=== PATIENT | female | born 2000 | race Caucasian/White ===

== ENCOUNTER 2022-04-30 12:49 | Emergency (ER) | payer MEDICAID ==
[~2022-04-30] VITALS: Ht 162.6 cm; Wt 46.4 kg
[2022-04-30 13:00] VITALS: TEMP 98.3
[2022-04-30 13:43] LABS: COLLECTION METHOD CLEAN CATCH
[2022-04-30 13:53] LABS: URINE APPEARANCE Hazy (CLEAR/HAZY); URINE COLOR Yellow (YELLOW)
[2022-04-30 13:54] LABS: URINE BLOOD TRACE-INTACT (NEGATIVE); URINE GLUCOSE Negative (NEGATIVE); URINE KETONE Negative (NEGATIVE); URINE NITRATE Negative (NEGATIVE); URINE PROTEIN(semi-quant) Negative (NEGATIVE)
[2022-04-30 13:55] LABS: MUCOUS Present (NOT PRESENT); URINE BACTERIA Rare /hpf (NONE SEEN)
[2022-04-30 14:16] LABS: ALBUMIN 3.3 gm/dL (3.5-5.0); BASO # 0.1 K/mm3 (0.0-0.2); BASO % 0.5 % (0.0-2.0); BILIRUBIN,TOTAL 0.3 mg/dL (0.2-1.2); CREATININE, serum 0.6 mg/dL (0.57-1.11); EOS % 0.4 % (0.0-4.0); GRAN # 7.2 K/mm3 (1.4-6.5); GRAN % 72.8 % (42.2-75.2); LYMPH # 1.9 K/mm3 (1.2-3.4); MEAN CELL VOLUME 61 fl (80.0-95.0); MEAN CORPUSCULAR HGB CONC 29 g/dl (33.0-37.0); MONO # 0.7 K/mm3 (0.1-0.6); MONO % 6.9 % (1.7-9.3); PLATELET COUNT 227 K/mm3 (130-400); POTASSIUM 3.7 mmol/L (3.5-4.5); RED BLOOD COUNT 4.44 M/mm3 (4.10-5.30); REDCELL DISTRIBUTION WIDTH-CV 21.9 % (11.5-14.5); TOTAL PROTEIN 7.4 gm/dL (6.2-8.1)
[2022-04-30 14:59] LABS: HEMATOCRIT 26.9 % (35.0-45.0); HEMOGLOBIN 7.9 g/dl (12.0-15.0); MEAN CORPUSCULAR HEMOGLOBIN 18 pg (26-32)
[2022-04-30] MEDS ORDERED: MACROBID 1100 MG/CAP PO (15:06)
[2022-04-30 15:30] VITALS: BP 118/71; PULSE 90
== END 2022-04-30 15:40 | disposition home or self-care (01) ==
LOC: COL.ER 12:49
PROVIDERS: Emergency Medicine
DX: O23.42 Unspecified infection of urinary tract in pregnancy, second trimester (principal); O99.012 Anemia complicating pregnancy, second trimester; N39.0 Urinary tract infection, site not specified; D50.9 Iron deficiency anemia, unspecified; Z28.310 Unvaccinated for COVID-19; Z3A.16 16 weeks gestation of pregnancy

== ENCOUNTER → 2022-05-02 | Outpatient (CLI) | payer SELFPAY ==
[~2022-05-02] MED LIST: MACROBID 1100 MG/CAP PO
== END ==
LOC: COL.RAD 06:19
DX: O26.892 Other specified pregnancy related conditions, second trimester (principal); O34.82 Maternal care for other abnormalities of pelvic organs, second trimester; N83.202 Unspecified ovarian cyst, left side; Z3A.16 16 weeks gestation of pregnancy

== ENCOUNTER 2022-07-12 14:48 | Outpatient (RCR) | payer MEDICAID ==
[~2022-07-12] VITALS: Ht 162.6 cm; Wt 54.8 kg
[2022-07-12] MEDS ORDERED: FLAGYL500 MG PO (15:45)
[2022-07-12] MEDS ORDERED: PRENATAL TABLET PO (15:46)
[2022-07-12 15:55] VITALS: BP 97/64; PULSE 94; TEMP 98.7
--- NOTE | 2022-07-12 16:15 | NUR ---
Iron infusion not given, as staff enter room to start IV pt reports she has had hx of reaction to an iron infusion, but she is unable to provide name of iron infusion she was given. She is asked to contact infusion center in [place] to request name of med she reacted to, as well as name of med they switched to after reaction, which she was able to tolerate. She states reaction with initial infusion caused burning sensation in feet and swelling which lead to ED visit for allergic reaction. Pt exits dept at this time and will inform [facility] and Dr Prabhakar's office when she gets names of meds from [place].
--- NOTE | 2022-07-12 16:49 | NUR ---
Pt calls back at this time reporting she heard back from infusion center in [place]. She had allergic reaction to venofer. Infusion orders were changed to ferrlecit gluconate, which she tolerated without issue. Pt will relay this medication to Dr Prabhakar's office via portal. This nurse will also call to leave information in voicemail.
== END 2022-07-13 15:36 ==
LOC: EUO 14:48
DX: Z51.81 Encounter for therapeutic drug level monitoring (principal)

== ENCOUNTER 2022-08-11 13:00 | Outpatient (RCR) | payer MEDICAID ==
[2022-07-28 09:18] VITALS: BP 103/67; PULSE 92; TEMP 98.6
--- NOTE | 2022-07-28 10:47 | NUR ---
PT AMBULATED TO [facility] FOR AN IRON INFUSION. MEDS AND HX REVIEWED WITH PT. IV STARTED. IRON INFUSION GIVEN, PT STATED THAT THEY FELT GOOD AFTER THE INFUSION HAD FINSISHED. THIS WAS THE PTS FIRST IRON INFUSION WITH US, THEY WAITED 30 MINUTES POST INFUSION TO MAKE SURE THEY TOLERATED IT WELL. IV WAS THEN DC'D AND PT EXITED THE UNIT.
[2022-08-04 08:11] VITALS: BP 109/68; PULSE 65; TEMP 98.4
--- NOTE | 2022-08-04 09:16 | NUR ---
Pt discharged at approx 0915. pt toelrated iron infusion well and verbalized when next appointment would by. IV was removed upon discharge and pt tolerated po fluids throughout infusion. She was free from concerns and complaints at time of discharge.
[~2022-08-11] VITALS: Ht 162.6 cm; Wt 57.3 kg
[~2022-08-11 13:00] MED LIST changes: +FLAGYL500 MG PO; +PRENATAL TABLET PO
[2022-08-11 13:38] VITALS: BP 95/60; PULSE 77; TEMP 98.5
== END 2022-08-11 15:07 ==
LOC: EUO 13:00
DX: Z51.81 Encounter for therapeutic drug level monitoring (principal)
CPT/HCPCS: J2916

== ENCOUNTER 2022-12-29 09:28 | Emergency (ER) | payer MEDICAID ==
[~2022-12-29] VITALS: Ht 162.6 cm; Wt 50.0 kg
[~2022-12-29 09:28] MED LIST changes: +MOTRIN 800800 MG/TAB PO
[2022-12-29 09:32] VITALS: TEMP 98.4
[2022-12-29 10:02] VITALS: BP 105/63; PULSE 96
== END 2022-12-29 10:10 | disposition home or self-care (01) ==
LOC: COL.ER 09:28
DX: J02.9 Acute pharyngitis, unspecified (principal); R53.81 Other malaise; Z28.310 Unvaccinated for COVID-19

== ENCOUNTER 2023-03-21 21:39 | Emergency (ER) | payer MEDICAID ==
[~2023-03-21] VITALS: Ht 162.6 cm; Wt 48.6 kg
[2023-03-21 21:45] VITALS: TEMP 98.4
[2023-03-21 22:26] LABS: BASO % 0.2 % (0.0-2.0); EOS % 0.2 % (0.0-4.0); GRAN # 7.7 K/mm3 (1.4-6.5); GRAN % 89.7 % (42.2-75.2); LYMPH # 0.7 K/mm3 (1.2-3.4); LYMPH % 7.6 % (20.0-51.0); MEAN CELL VOLUME 62 fl (80.0-100.0); MEAN CORPUSCULAR HGB CONC 28 g/dl (33.0-37.0); MONO # 0.2 K/mm3 (0.1-0.6); MONO % 2.1 % (1.7-9.3); PLATELET COUNT 201 K/mm3 (130-400); RED BLOOD COUNT 4.28 M/mm3 (4.10-5.30); REDCELL DISTRIBUTION WIDTH-CV 23.5 % (11.5-14.5)
[2023-03-21 22:27] LABS: HEMATOCRIT 26.7 % (37.0-47.0); HEMOGLOBIN 7.5 g/dl (12.5-16.0); MEAN CORPUSCULAR HEMOGLOBIN 18 pg (27-31)
[2023-03-21 22:45] LABS: BILIRUBIN,TOTAL 0.5 mg/dL (0.2-1.2); CALCIUM 8.9 mg/dL (8.4-10.2); CREATININE, serum 0.71 mg/dL (0.57-1.11); POTASSIUM 3.5 mmol/L (3.5-4.5); TOTAL PROTEIN 7.5 gm/dL (6.2-8.1)
[2023-03-21 23:28] LABS: COLLECTION METHOD CLEAN CATCH
[2023-03-21 23:43] LABS: URINE APPEARANCE Clear (CLEAR/HAZY); URINE COLOR Yellow (YELLOW)
[2023-03-21 23:44] LABS: MUCOUS Present (NOT PRESENT); SQUAMOUS EPITHELIAL 0-2 /hpf (0-10); URINE BACTERIA Occasional /hpf (NONE SEEN); URINE BLOOD 3+ (NEGATIVE); URINE GLUCOSE Negative (NEGATIVE); URINE KETONE Negative (NEGATIVE); URINE NITRATE Negative (NEGATIVE); URINE PROTEIN(semi-quant) Negative (NEGATIVE); URINE UROBILINOGEN 0.2 E.U/dL (0.2-1.0)
[2023-03-21] MEDS ORDERED: ZOFRAN ODT4 MG PO (23:57)
[2023-03-21] MEDS ORDERED: MACROBID 1100 MG/CAP PO (23:57)
[2023-03-22] VITALS: BP 109/63; PULSE 98
== END 2023-03-22 00:13 | disposition home or self-care (01) ==
LOC: COL.ER 21:39
PROVIDERS: Emergency Medicine
DX: N39.0 Urinary tract infection, site not specified (principal); N93.9 Abnormal uterine and vaginal bleeding, unspecified; D64.9 Anemia, unspecified; E86.0 Dehydration; R11.2 Nausea with vomiting, unspecified
CPT/HCPCS: J2405; J7030

== ENCOUNTER 2023-05-16 17:59 | Emergency (ER) | payer MEDICAID ==
[~2023-05-16] VITALS: Ht 162.6 cm; Wt 47.3 kg
[~2023-05-16 17:59] MED LIST changes: +ZOFRAN ODT4 MG PO
[2023-05-16 18:18] VITALS: BP 104/73; PULSE 88; TEMP 98.2
== END 2023-05-16 20:58 | disposition home or self-care (01) ==
LOC: COL.ER 17:59
PROVIDERS: Physician Assistant
DX: Z34.90 Encounter for supervision of normal pregnancy, unspecified, unspecified trimester (principal)